=== PATIENT | male | born 1960 ===

== ENCOUNTER 2024-07-18 13:22 | Outpatient (AMB) | payer OTHER, SELFPAY ==
[2024-07-18 13:36] VITALS: BP 160/78; PULSE 73; RESP 19; TEMP 35.7; O2SAT 90; BMI 31.0
--- NOTE | 2024-07-18 13:36 | PD.ORTHCLVIS ---
Vital signs 07/18/24 13:36 Height 1.7 m Height Method Stated Weight 89.953 kg Weight Measurement Method Standing Scale BMI 31.0 BP 160/78 H Blood Pressure Source Automatic Cuff Blood Pressure Location Right Upper Arm Position Sitting Respiration 19 Pulse 73 Pulse Source Monitor Temp 96.3 F L Temp Source Temporal Artery Scan Pulse Oximetry (%) 90 L Oxygen Delivery Method Room Air Med/Allergies Allergies & Medications Allergies semaglutide [From Ozempic] Allergy (Verified 07/18/24 13:37) Medication Reconciliation aspirin 81 mg tablet,delayed release 81 mg PO QDAY 07/18/24 [History Confirmed 07/18/24] atorvastatin 20 mg tablet 20 mg PO QDAY 07/18/24 [History Confirmed 07/18/24] buprenorphine 8 mg/0.16 mL solution,exten.rel.subcutaneous syringe 8 mg subcut Q7D 07/18/24 [History Confirmed 07/18/24] empagliflozin 25 mg tablet (Jardiance) 25 mg PO QAM 07/18/24 [History Confirmed 07/18/24] fluticasone fur. 100 mcg-umeclid 62.5 mcg-vilant 25 mcg inhalat.powder (Trelegy Ellipta) 1 inh inhalation Q24H 07/18/24 [History Confirmed 07/18/24] glipizide 10 mg tablet 10 mg PO QDAY 07/18/24 [History Confirmed 07/18/24] insulin glargine U-300 conc 300 unit/mL (3 mL) subcutaneous pen (Toujeo Max U-300 SoloStar) 40 unit subcut QDAY 07/18/24 [History Confirmed 07/18/24] levothyroxine 125 mcg capsule 125 mcg PO QDAY 07/18/24 [History Confirmed 07/18/24] losartan 25 mg tablet 25 mg PO QDAY 07/18/24 [History Confirmed 07/18/24] metoprolol succinate 50 mg tablet,extended release 24 hr 50 mg PO QDAY 07/18/24 [History Confirmed 07/18/24] tramadol 50 mg tablet 50 mg PO QDAY 07/18/24 [History Confirmed 07/18/24] Subjective Visit Visit for: new patient and knee (LEFT) Immunization / Flu Flu Vaccine in the Last 12 Months: Yes Flu Vaccine Exclusion Criteria: Already Received History of Present Illness Chief complaint: LEFT KNEE PAIN Levi is a pleasant 64-year-old male with severe left knee pain. He has had 2 prior meniscectomies in the past 1 open and 1 arthroscopic. He has had cortisone injections in the past to he is to also tried anti-inflammatories he is on Suboxone. He reports the pain comes and goes and is reasonable right now. Personal History Occupation: RETIRED Red flag PMH: smoker Pain Pain level (0-10): 4 Pain duration: COMES AND GOES Pain location: inside (medial), outside (lateral), anterior and posterior Pain quality: sharp, dull, aching, burning and shocking Pain timing: night, increases with activity and stairs Associated signs & symptoms: stiffness Ambulatory data Ambulatory device: none Treatments Improvement with previous injections: No Improvement with PT: No Improvement with NSAIDS: no Review of Systems Review of Systems: All systems negative unless otherwise noted in HPI. Exam Exam Patient is in no acute distress and is cooperative with the examination today. Breathing is nonlabored. Patient has a normal mood and affect. Bilateral extremities were evaluated and demonstrates sensation intact to light touch. Palpable pedal pulses are present. No significant edema is present. Bilateral hips were examined. The patient has no pain with log roll of the hips. Internal rotation to 30 degrees and external rotation to 30 degrees is painless. Negative FADIR. Right knee was examined today. The right knee is in reasonable alignment. Range of motion from 0-120 degrees. Knee is stable to varus and valgus as well as AP translation with <5mm. Patient has a negative McMurrays. There is no pain with patellofemoral compression and no crepitus noted. The knee is nontender to palpation. Left knee was examined today. The left knee is in round alignment. Range of motion from [0-115] degrees. Knee is stable to varus and valgus as well as AP translation with <5mm. Patient has a [negative] McMurrays. There is [no] pain with patellofemoral compression and [no] crepitus noted. The knee is [tender] to palpation [medially]. Patient has an MRI. This demonstrates an ACL tear as well as multiple lateral and medial meniscus tears Assessment and Plan Problem List (1) Degenerative arthritis of knee, bilateral: Status: Acute Plan: Patient is a pleasant 64-year-old male with a prior open and arthroscopic medial discectomy. He likely has severe end-stage arthritis. We discussed nonoperative options. We will see him back after his x-rays are done Advanced Care Planning Discussion Advance care planning discussed with:: patient Office Procedures GNS Level of Care Nursing/Assessment Patient Status: Initial/New Patient Nursing Assessment/Reassesment: Medication Reconciliation, Update PMH in EMR and Vital Signs Coordination of Care: Complex Care and Chronic Disease 1-5, Education Complex Pt/Fam, Consent,records obtained, informed consent and Staff clarify orders New Patient Charge New Patient Point Assignment: 1089 New Patient Point Charge: ENVIRONMENTAL COMPLIANCE ENGINEER Level 3 ([id number]) Past Medical History Past Medical History Have you ever been diagnosed with any of the following: Respiratory Problems Smoking: Yes (40 YEARS) Smoking Exposure: Yes
== END 2024-07-18 14:07 | disposition home or self-care (01) ==
LOC: HODSRG 13:22
PROVIDERS: Supervising Provider Orthopaedic Surgery Adult Reconstructive Orthopaedic Surgery; Visit Provider Orthopaedic Surgery Adult Reconstructive Orthopaedic Surgery
DX: M17.0 Bilateral primary osteoarthritis of knee (principal)
CPT/HCPCS: 99203; G0463

== ENCOUNTER 2024-08-08 10:33 | Outpatient (AMB) | payer OTHER, SELFPAY ==
--- NOTE | 2024-08-08 11:07 | ORTHONT_ITS ---
Vital signs 08/08/24 11:08 Height 1.7 m Height Method Stated Weight 89.925 kg Weight Measurement Method Standing Scale BMI 31.1 BP 125/83 Blood Pressure Source Automatic Cuff Blood Pressure Location Right Upper Arm Position Sitting Respiration 18 Pulse 70 Pulse Source Monitor Temp 97.3 F Temp Source Temporal Artery Scan Pulse Oximetry (%) 94 L Oxygen Delivery Method Room Air Med/Allergies Allergies & Medications Allergies semaglutide [From Ozempic] Allergy (Verified 08/08/24 11:12) Medication Reconciliation aspirin 81 mg tablet,delayed release 81 mg PO QDAY 07/18/24 [History Confirmed 08/08/24] atorvastatin 20 mg tablet 20 mg PO QDAY 07/18/24 [History Confirmed 08/08/24] buprenorphine 8 mg/0.16 mL solution,exten.rel.subcutaneous syringe 8 mg subcut Q7D 07/18/24 [History Confirmed 08/08/24] empagliflozin 25 mg tablet (Jardiance) 25 mg PO QAM 07/18/24 [History Confirmed 08/08/24] fluticasone fur. 100 mcg-umeclid 62.5 mcg-vilant 25 mcg inhalat.powder (Trelegy Ellipta) 1 inh inhalation Q24H 07/18/24 [History Confirmed 08/08/24] glipizide 10 mg tablet 10 mg PO QDAY 07/18/24 [History Confirmed 08/08/24] insulin glargine U-300 conc 300 unit/mL (3 mL) subcutaneous pen (Toujeo Max U- 300 SoloStar) 40 unit subcut QDAY 07/18/24 [History Confirmed 08/08/24] levothyroxine 125 mcg capsule 125 mcg PO QDAY 07/18/24 [History Confirmed 08/08/24] losartan 25 mg tablet 25 mg PO QDAY 07/18/24 [History Confirmed 08/08/24] metoprolol succinate 50 mg tablet,extended release 24 hr 50 mg PO QDAY 07/18/24 [History Confirmed 08/08/24] tramadol 50 mg tablet 50 mg PO QDAY 07/18/24 [History Confirmed 08/08/24] meloxicam 7.5 mg tablet 7.5 mg PO QDAY #45 tabs 08/08/24 [Rx] Subjective Visit Visit for: follow up visit and x-rays Immunization / Flu Flu Vaccine in the Last 12 Months: No Flu Vaccine Exclusion Criteria: No Exclusion Criteria History of Present Illness Chief complaint: F/U XRAYS Levi is a pleasant 64-year-old male with severe left knee pain. He has had 2 prior meniscectomies in the past 1 open and 1 arthroscopic. He has had cortisone injections in the past to he is to also tried anti-inflammatories he is on Suboxone. He reports the pain comes and goes and is reasonable right now. Personal History Occupation: RETIRED Red flag PMH: smoker Pain Pain level (0-10): 4 Pain duration: ALL DAY Pain location: anterior and posterior Pain quality: sharp, dull and aching Pain timing: increases with activity Associated signs & symptoms: stiffness Ambulatory data Ambulatory device: none Treatments Improvement with previous injections: No Improvement with PT: No Improvement with NSAIDS: n/a Review of Systems Review of Systems: All systems negative unless otherwise noted in HPI. Exam Exam Patient is in no acute distress and is cooperative with the examination today. Breathing is nonlabored. Patient has a normal mood and affect. Bilateral extremities were evaluated and demonstrates sensation intact to light touch. Palpable pedal pulses are present. No significant edema is present. Bilateral hips were examined. The patient has no pain with log roll of the hips. Internal rotation to 30 degrees and external rotation to 30 degrees is painless. Negative FADIR. Right knee was examined today. The right knee is in reasonable alignment. Range of motion from 0-120 degrees. Knee is stable to varus and valgus as well as AP translation with <5mm. Patient has a negative McMurrays. There is no pain with patellofemoral compression and no crepitus noted. The knee is nontender to palpation. Left knee was examined today. The left knee is in round alignment. Range of motion from [0-115] degrees. Knee is stable to varus and valgus as well as AP translation with <5mm. Patient has a [negative] McMurrays. There is [no] pain with patellofemoral compression and [no] crepitus noted. The knee is [tender] to palpation [medially]. Patient has an MRI. This demonstrates an ACL tear as well as multiple lateral and medial meniscus tears X-rays from [place] demonstrate significant arthritis with complete obliteration of the lateral medial joint space. There are significant osteophytes. Assessment and Plan Problem List (1) Degenerative arthritis of knee, bilateral: Status: Acute Plan: Patient is a pleasant 64-year-old male with a prior open and arthroscopic medial Meniscectomy. He has significant posttraumatic arthritis. We recommend nonoperative is operative options. We discussed anti-inflammatories and injections. He would like to start with this. I discussed with him that a total knee replacement would be another option but he may have issues with pain control because of the Suboxone and wound healing issues because of the prior large open meniscectomy incision Advanced Care Planning Discussion Advance care planning discussed with:: patient Office Procedures GNS Level of Care Nursing/Assessment Patient Status: Established Patient Nursing Assessment/Reassesment: Medication Reconciliation, Update PMH in EMR and Vital Signs Coordination of Care: Complex Care and Chronic Disease 1-5, Education Complex Pt/Fam, Consent,records obtained, informed consent, Results/Orders obtained and Staff clarify orders Established Patient Charge Established Patient Point Assignment: 95 Established Patient Point Charge: EP Level 3 (80-115) Surgical Proc/IM SQ injection Major Surgical Procedure: Yes (KNEE INJECTION) Medication Given Medication Given Medication Given: Yes Documented Dose Given: 4 Route: Infiitration Medication Given Medication Given Medication Given: Yes Documented Dose Given: 1 Route: Infiitration Office Meds Xylocaine 10 mg/mL (1 %) injection solution Performing Provider: Chaitanya Day MD Performing Location: [facility] Administered by: Chaitanya Day MD on 08/08/24 11:30 Dose Route Admin Location Dispensed Lot Number Expiration Date [facility] [employer] 20 mL Infiltration 20 mL [id number] 04/22/27 43593-370-71 [facility] triamcinolone acetonide 40 mg/mL suspension for injection Performing Provider: Chaitanya Day MD Performing Location: [facility] Administered by: Chaitanya Day MD on 08/08/24 11:30 Dose Route Admin Location Dispensed Lot Number Expiration Date [facility] [employer] 40 mg Infiltration 1 mL [id number] 04/22/26 [address]-3 [employer] Past Medical History Past Medical History Have you ever been diagnosed with any of the following: Respiratory Problems Smoking: Yes (40 YEARS) Smoking Exposure: Yes
[2024-08-08 11:08] VITALS: BP 125/83; PULSE 70; RESP 18; TEMP 36.3; O2SAT 94; BMI 31.1
== END 2024-08-08 11:33 | disposition home or self-care (01) ==
LOC: HODSRG 10:33
PROVIDERS: Supervising Provider Orthopaedic Surgery Adult Reconstructive Orthopaedic Surgery; Visit Provider Orthopaedic Surgery Adult Reconstructive Orthopaedic Surgery
DX: M17.0 Bilateral primary osteoarthritis of knee (principal); M25.562 Pain in left knee
CPT/HCPCS: 20610; 99213; J3301; J3490; G0463